=== PATIENT | female | born 1950 | race Caucasian/White ===

== ENCOUNTER → 2016-12-05 | Outpatient (CLI) | payer OTHER | LOC: BMCIMAGING 08:39 | PROVIDERS: ATTEND Nurse Practitioner Family | DX: R05 Cough (principal) ==

== ENCOUNTER → 2017-05-10 | Outpatient (CLI) | payer OTHER | LOC: FIMAGING 08:53 | PROVIDERS: ATTEND Obstetrics & Gynecology | DX: D25.9 Leiomyoma of uterus, unspecified (principal) ==

== ENCOUNTER → 2018-04-10 | Outpatient (CLI) | payer OTHER | LOC: FIMAGING 12:18 | PROVIDERS: ATTEND Internal Medicine | DX: M48.061 Spinal stenosis, lumbar region without neurogenic claudication (principal); M48.07 Spinal stenosis, lumbosacral region; M51.36 Other intervertebral disc degeneration, lumbar region; M51.27 Other intervertebral disc displacement, lumbosacral region ==

== ENCOUNTER → 2018-04-12 | Outpatient (CLI) | payer OTHER | LOC: FIMAGING 11:55 | PROVIDERS: ATTEND Internal Medicine | DX: M16.0 Bilateral primary osteoarthritis of hip (principal); M46.96 Unspecified inflammatory spondylopathy, lumbar region; M46.97 Unspecified inflammatory spondylopathy, lumbosacral region ==

== ENCOUNTER → 2018-06-27 | Outpatient (CLI) | payer OTHER | LOC: BMCIMAGING 11:49 | PROVIDERS: ATTEND Allergy & Immunology Allergy | DX: J44.9 Chronic obstructive pulmonary disease, unspecified (principal) ==

== ENCOUNTER 2018-08-19 13:04 | Inpatient (IN) | payer OTHER ==
[2018-08-19] MEDS ORDERED: fentaNYL 100 MCG/2 ML INJ ONE (13:09)
[2018-08-19] MEDS ORDERED: KETAMINE 200 MG/20 ML VIAL ONE (13:16)
[2018-08-19] MEDS ORDERED: KETAMINE 200 MG/20 ML VIAL IVP ONE ×2 (13:16→13:30)
[2018-08-19] MEDS ORDERED: TDAP ADULT 0.5 ML INJ (BOOSTRIX) IM ONE (13:17)
--- NOTE | 2018-08-19 13:27 | EDPHY ---
H & P Time Seen by Provider: 08/19/18 13:10 HPI/ROS: CHIEF COMPLAINT: Right hip pain after fall HISTORY OF PRESENT ILLNESS: Patient was washing her dog in the bathtub when she slipped and landed on her right side. She did have some alcohol today. She presents by EMS on her left side complaining of severe right hip pain. Does not radiate but worse with any movement. Started just after the fall. Not associated with head injury or loss of consciousness. She does have an abrasion on her right knee and her left elbow. REVIEW OF SYSTEMS: Eye: no change in vision ENT: no sore throat Cardiac: no chest pain or syncope Pulmonary: no cough or SOB Abdomen: no vomiting, diarrhea, abdominal pain Musculoskeletal: No back or neck pain Skin: Skin abrasions Neuro: No weakness or numbness in the legs, she does have some chronic left lower hip and leg pain which is not changed. Constitutional: no fever : no urinary symptoms A comprehensive 10 point review of systems is otherwise negative aside from elements mentioned in the history of present illness. PAST MEDICAL HISTORY: Includes post-polio syndrome, chronic pain, asthma Social history: Alcohol today General Appearance: Patient is alert but intermittently screaming in pain from which she says is spasm in her right hip. Eyes: No scleral icterus. ENT, Mouth: Normal mucous membranes. Respiratory: Normal respiratory effort, breath sounds equal, lungs are clear to auscultation. Cardiovascular: Regular rate and rhythm. Gastrointestinal: Abdomen is soft and non tender. Neurological: Alert, face symmetric, normal motor and sensory in extremities. Skin: Left elbow and right knee abrasion. Musculoskeletal: Pelvis stable, pain in the right hip on palpation and rotation. Right knee abrasion but no bony tenderness in the thigh and knee leg or foot. Normal motor and sensory and dorsalis pedis pulse in both feet. Otherwise normal extremities. Psychiatric: Not agitated. Emergency Department course/MDM: 100 mcg fentanyl IV by EMS and 100 mcg in the emergency department, 20 mg IV ketamine. Wound care, tetanus update, x-rays of the right hip and knee, admission to hospitalist service with orthopedic consultation. No cervical spine tenderness. 1356: Discussed with the son who is in the room. Still is writhing around the bed in pain saying she has leg cramps, given 100 mg of fentanyl and 1 mg Ativan. She is hyperventilating. Patient does not know when she had something to eat or drink last. Smoking Status: Former smoker Constitutional: Initial Vital Signs Temperature (C) 36.8 C 08/19/18 13:12 Respiratory Rate 20 08/19/18 13:12 Blood Pressure 107/84 H 08/19/18 13:12 O2 Delivery Mode Room Air Allergies/Adverse Reactions: No Known Allergies Allergy (Verified 08/19/18 13:12) Home Medications: Medication Instructions Recorded Cetirizine [ZyrTEC 10 mg (*)] 10 mg PO DAILY AT 8PM PRN 04/27/17 diphenhydrAMINE [Benadryl 25 MG 25 mg PO DAILY AT 2PM 04/27/17 (*)] Advair 230/21 Hfa 1 puffs IH BID 08/19/18 Albuterol [Proventil Neb] 3 ml IH BID 08/19/18 Cetirizine [ZyrTEC 10 mg (*)] 10 mg PO DAILY@12 08/19/18 Fexofenadine HCl [Dimla Allergy] 180 mg PO DAILY 08/19/18 Levothyroxine [Synthroid 50 mcg 50 mcg PO DAILY06 08/19/18 (*)] Medical Decision Making - Diagnostics EKG Interpretation: 12-lead EKG interpreted by me; official reading is in computer system. My interpretation is sinus rhythm with late anterior RS transition. Artifact in 1 2 and 3. Imaging Results: Imaging Impressions Hip X-Ray 08/19/18 13:16 Impression: 1. Right femoral neck fracture. 2. See above report for additional findings. Knee X-Ray 08/19/18 13:16 Impression: Negative for fracture. X-ray of the right hip personally reviewed shows surgical neck fracture. Imaging: Discussed imaging studies w/ scallop dredger Radiologist, I viewed and interpreted images myself Differential Diagnosis: Differential for hip pain considered including but not limited to dislocation, femur fracture, pelvis fracture, hip contusion. Consult/Admit Bed Type: Dk Perry 1404,Asif 1410 - Data Points Laboratory Results: Laboratory Results 08/19/18 13:50 08/19/18 13:50 08/19/18 08/19/18 08/19/18 13:50 13:50 13:50 WBC RBC Hgb Hct MCV MCH MCHC RDW Plt Count MPV Neut % (Auto) Lymph % (Auto) Wythe % (Auto) Eos % (Auto) Baso % (Auto) Nucleat RBC Rel Count Absolute Neuts (auto) Absolute Lymphs (auto) Absolute Monos (auto) Absolute Eos (auto) Absolute Basos (auto) Absolute Nucleated RBC Immature Gran % Immature Gran # PT 12.8 SEC SEC (12.0-15.0) INR 0.94 (0.83-1.16) APTT 24.5 SEC SEC (23.0-38.0) Sodium 139 mEq/L mEq/L (135-145) Potassium 4.6 mEq/L mEq/L (3.3-5.0) Chloride 106 mEq/L mEq/L (97-110) Carbon Dioxide 24 mEq/l mEq/l (22-31) Anion Gap 9 mEq/L mEq/L (6-14) BUN 19 mg/dL mg/dL (7-23) Creatinine 0.7 mg/dL mg/dL (0.6-1.0) Estimated GFR > 60 Glucose 98 mg/dL mg/dL (70-100) Calcium 10.3 mg/dL mg/dL (8.5-10.4) Total Bilirubin 0.6 mg/dL mg/dL (0.1-1.4) Conjugated Bilirubin 0.2 mg/dL mg/dL (0.0-0.5) Unconjugated Bilirubin 0.4 mg/dL mg/dL (0.0-1.1) AST 31 IU/L IU/L (14-46) ALT 27 IU/L IU/L (9-52) Alkaline Phosphatase 56 IU/L IU/L (38-126) Total Protein 6.9 g/dL g/dL (6.3-8.2) Albumin 4.4 g/dL g/dL (3.5-5.0) TSH 17.100 uIU/mL H uIU/mL (0.465-4.680) Free T4 1.22 ng/dL ng/dL (0.59-2.19) Free T3 3.29 pg/mL pg/mL (2.77-5.27) Ethyl Alcohol 129 mg/dL H mg/dL (0-10) 08/19/18 13:50 WBC 8.91 10^3/uL 10^3/uL (3.80-9.50) RBC 4.33 10^6/uL 10^6/uL (4.18-5.33) Hgb 13.8 g/dL g/dL (12.6-16.3) Hct 40.8 % % (38.0-47.0) MCV 94.2 fL fL (81.5-99.8) MCH 31.9 pg pg (27.9-34.1) MCHC 33.8 g/dL g/dL (32.4-36.7) RDW 14.2 % % (11.5-15.2) Plt Count 303 10^3/uL 10^3/uL (150-400) MPV 9.6 fL fL (8.7-11.7) Neut % (Auto) 60.3 % % (39.3-74.2) Lymph % (Auto) 30.5 % % (15.0-45.0) Wythe % (Auto) 8.6 % % (4.5-13.0) Eos % (Auto) 0.0 % L % (0.6-7.6) Baso % (Auto) 0.2 % L % (0.3-1.7) Nucleat RBC Rel Count 0.0 % % (0.0-0.2) Absolute Neuts (auto) 5.36 10^3/uL 10^3/uL (1.70-6.50) Absolute Lymphs (auto) 2.72 10^3/uL 10^3/uL (1.00-3.00) Absolute Monos (auto) 0.77 10^3/uL 10^3/uL (0.30-0.80) Absolute Eos (auto) 0.00 10^3/uL L 10^3/uL (0.03-0.40) Absolute Basos (auto) 0.02 10^3/uL 10^3/uL (0.02-0.10) Absolute Nucleated RBC 0.00 10^3/uL 10^3/uL (0-0.01) Immature Gran % 0.4 % % (0.0-1.1) Immature Gran # 0.04 10^3/uL 10^3/uL (0.00-0.10) PT INR APTT Sodium Potassium Chloride Carbon Dioxide Anion Gap BUN Creatinine Estimated GFR Glucose Calcium Total Bilirubin Conjugated Bilirubin Unconjugated Bilirubin AST ALT Alkaline Phosphatase Total Protein Albumin TSH Free T4 Free T3 Ethyl Alcohol Medications Given: Cyclobenzaprine HCl (Flexeril) 10 mg PO TID TORRES Stop: 02/15/19 15:59 Last Admin: 08/19/18 15:46 Dose: 10 mg Discontinued Medications Diphtheria/Tetanus/Acell Pertussis (Boostrix) 0.5 ml IM .ONCE ONE Stop: 08/19/18 13:18 Last Admin: 08/19/18 15:00 Dose: 0.5 ml Fentanyl (Sublimaze) 100 mcg IVP EDNOW ONE Stop: 08/19/18 13:31 Last Admin: 08/19/18 13:10 Dose: 100 mcg Fentanyl (Sublimaze) 100 mcg IVP EDNOW ONE Stop: 08/19/18 13:52 Last Admin: 08/19/18 13:57 Dose: 100 mcg Fentanyl (Sublimaze) 50 mcg IVP EDNOW ONE Stop: 08/19/18 14:57 Last Admin: 08/19/18 15:01 Dose: 50 mcg Hydromorphone HCl (Dilaudid) 0.4 mg IVP ONCE ONE Stop: 08/19/18 15:32 Last Admin: 08/19/18 15:44 Dose: 0.4 mg Ketamine HCl (Ketamine) 20 mg IVP EDNOW ONE Stop: 08/19/18 13:17 Last Admin: 08/19/18 13:25 Dose: 20 mg Ketamine HCl (Ketamine) 20 mg IVP EDNOW ONE Stop: 08/19/18 13:31 Last Admin: 08/19/18 13:39 Dose: 20 mg Lorazepam (Ativan Injection) 1 mg IVP EDNOW ONE Stop: 08/19/18 13:57 Last Admin: 08/19/18 14:07 Dose: Not Given Lorazepam (Ativan Injection) 1 mg IVP ONCE ONE Stop: 08/19/18 15:32 Last Admin: 08/19/18 15:43 Dose: 1 mg Departure - Departure Disposition: [facility] Acute Clinical Impression: Abrasion, right knee, initial encounter Fracture of femoral neck, right, closed Qualifiers: Encounter type: initial encounter Qualified Code(s): S72.001A - Fracture of unspecified part of neck of right femur, initial encounter for closed fracture Alcohol intoxication Qualifiers: Complication of substance-induced condition: uncomplicated Qualified Code(s): F10.920 - Alcohol use, unspecified with intoxication, uncomplicated Condition: Good
[2018-08-19] MEDS ORDERED: fentaNYL 100 MCG/2 ML INJ IVP ONE ×3 (13:30→14:56)
[2018-08-19] MEDS ORDERED: LORazepam 2 MG/ML INJ ONE (13:54)
[2018-08-19] MEDS: LORazepam 2 MG/ML INJ IVP ONE ×2 (13:57→14:07)
[2018-08-19] MEDS ORDERED: ACETAMINOPHEN 325 MG TAB PO PRN (14:13)
[2018-08-19] MEDS ORDERED: ONDANSETRON 4 MG/2 ML VIAL IVP PRN (14:13)
--- NOTE | 2018-08-19 14:13 | CPEKG ---
Test Reason : OPEN Blood Pressure : / mmHG Vent. Rate : 099 BPM Atrial Rate : 097 BPM P-R Int : 160 ms QRS Dur : 079 ms QT Int : 344 ms P-R-T Axes : 084 044 081 degrees QTc Int : 442 ms Sinus rhythm Left atrial enlargement Anteroseptal infarct, age indeterminate Lateral leads are also involved Confirmed by Joselo Gonzalez ([id number]) on 08/19/2018 2:13:03 PM Referred By: Confirmed By:Joselo Gonzalez
[2018-08-19 14:19] LABS: PLATELET COUNT 303 10^3/uL (150-400)
[2018-08-19 14:22] LABS: INR 0.94 (0.83-1.16); PROTIME(PATIENT) 12.8 SEC (12.0-15.0)
--- NOTE | 2018-08-19 14:40 | PDGENHP ---
History and Physical History and Physical: CC: For him by ambulance with hip pain after falling in her bathtub HISTORY: This patient was apparently giving her dog a bath in a bathtub when she slipped and fell on a slippery wet tile floor. She landed on her right side with immediate pain to the right hip unable to get up off the floor. She was home alone as her son and [id number] were out of the house with her child. It sounds like perhaps an hour or more she laid on the floor until the family came home and called an ambulance. She did not hit her head, does not have headache or neck pain or spine pain. She complains mainly of pain at the right hip with unable to move that hip. There is also some pain at the right knee and left elbow. X-rays have been done in the ER showing right femoral neck fracture and absence of any other fractures at the pelvis hips or right knee. She was not having any lightheadedness dizziness vertigo stroke-like symptoms headache nausea fever shortness of breath or cardiac symptoms before during or after her fall. She does not have a history of falls syncope or cardiac disease. Here in the ER she was complaining of severe muscular spasm in the right leg. Apparently she was writhing around a lot and unable to cooperate in providing a significant history to the ER staff. She was given a total of 300 mcg fentanyl as well as a couple doses of ketamine. Between her pain and her medications for pain, she was fairly inconsistent in inattentive. The initial examination by the ER physician found her to be confused and incoherent. I am seeing her at a time when she no spasm going on and she is notably more comfortable but still having pain in her hip. She is not writhing in the bed at all and she is wide awake, attentive, coherent, and participating in the examination normally. ROS: A comprehensive 10 system review revealed no other significant acute findings. She tells me that she gets a lot of muscle spasms from post-polio syndrome but there mostly around her neck and shoulder on the right side. They do occasionally occur in other places. At home she takes calcium and magnesium supplements to try and prevent these PAST MEDICAL HISTORY: I atrial genetic hyperthyroidism COPD/asthma History of tobacco abuse History of alcohol abuse and marijuana abuse Postmenopausal Cone biopsy Post-polio syndrome Chronic pain syndrome Seasonal allergies FAMILY MEDICAL HISTORY: No significant illness in family member she is aware of, nothing pertinent to her acute illness SOCIAL HISTORY: Lives alone MEDICATIONS: The patients list has been reconciled by our clinical pharmacist in the EMR. I have reviewed the list and ordered appropriate medicines. PHYSICAL EXAMINATION: Vital Signs: Normal vitals without fever, no hypoxemia Winding Lathe Operator: Examination: General: Lying on [facility] on her left side. She is relaxed alert and talkative Neurologic: Wide awake, oriented to person, date date month year, location, and really has a normal mentation for me overall; normal speech/language, normal homeowner association manager, good neuro muscular function at her right foot and toes Skin: warm, dry, good color, no rash HEENT: normal Neck: no mass or jvd Resps: relaxed Lungs: clear breath sounds Heart: regular, no murmur Abdomen: soft, nondistended, nontender, +BS, no mass Upper Extremities: Small superficial abrasion over the lateral epicondyle and olecranon on left elbow but moves that joint well with no swelling Lower Extremities: Normal neuro muscular and vascular function at the right foot and toes, otherwise legs and feet have no edema, warm with good color No Bleeding or bruising IV site: looks normal LABORATORY DATA: CBC remarkable for absence of macrocytosis otherwise normal Normal metabolic panel and liver panel I ordered TSH and free T3 in 4 levels which RADIOLOGY STUDIES: I have reviewed images from x-rays of her pelvis right hip and right knee. There is a femoral neck fracture on the right with mild displacement of angulation, no other fractures noted I ordered a noncontrast CT of the head and on my review of the images there is no evidence of any acute injury, bleed, stroke and no other significant abnormalities, with radiology reading pending 12 LEAD EKG: I reviewed tracing from the ER which shows a sinus tachycardia without any ischemic or other acute changes ASSESSMENT: * mechanical fall at home with injury * femoral neck fracture on the right * severe muscle spasms triggered by injury and her post-polio syndrome * confusion acutely in the ER was likely cause primarily by medications including large doses of fentanyl and ketamine, also given Ativan; Mentation normalized by the time I saw her subsequently in the ER; CT head negative * not on anticoagulants * post-polio syndrome * acute mild alcohol intoxication ADDENDUM: After my initial exam in the ER the patient started having severe muscle spasms in the left calf, which have now persisted for more than 30 min. PLANS: * Inpatient admission * I reviewed with Dr. Perry of Orthopedics, plan will be for surgical repair of her right hip tomorrow morning scheduled at 10:30 a.m. * Will make her NPO after midnight * I have ordered x-rays of the left tibia fibula and I am waiting for those to be done * Pain management with analgesics and muscle relaxers for now * DVT prophylaxis will start with a dose of subcu heparin now 5000 units, and then DVT medicine should be restarted after surgery tomorrow * Recheck hemoglobin in the morning I have reviewed the patient's case in detail with Dr. Joselo Gonzalez and Dr. Dk Perry I have reviewed the patient's past medical records as part of this assessment, including previous hospital admission records from this institution
--- NOTE | 2018-08-19 15:06 | ASMTLACE ---
BRYCE Acuity / Level of Answers: Yes Care: Did the patient have an inpatient admission? Comorbidities - select Answers: Chronic pulmonary disease all that apply History of falls Opioid dependence / Chronic pain Other Notes: post-polio syndrome, asthma # of Emergency department Answers: 1-2 visits in the last 6 months Social determinants Answers: History of substance abuse (ETOH, street drugs, prescription drugs, etc.) Score: 17 Date Signed: 08/19/2018 03:05 PM Electronically Signed By:Alysa Tapia RN
[2018-08-19] MEDS ORDERED: HYDROmorphONE/DILAUDID 1 MG/ML INJ IVP ONE (15:31)
[2018-08-19] MEDS ORDERED: LORazepam 2 MG/ML INJ IVP ONE (15:31)
[2018-08-19] MEDS ORDERED: HEPARIN 20,000 UNIT/ML VIAL SC ONE (15:37)
[2018-08-19] MEDS ORDERED: HEPARIN 5,000 UNIT/0.5 ML INJ SC ONE ×2 (15:45→18:30)
[2018-08-19] MEDS: CYCLOBENZAPRINE 10 MG TAB PO SCH ×2 (15:46→21:09)
--- NOTE | 2018-08-19 15:48 | ASMTCMCOM ---
CM Note CM Note Notes: Pt presented to the ED via EMS for right hip pain after having a fall at home. Pt states she was washing her dog in the bathtub when she slipped and fell onto her right side. Pt did admit to ETOH use today and has a history of ETOH abuse. Pt admitted for right femoral neck fracture. Ortho consulted, pt to have surgical repair tomorrow morning. Pt lives alone with her dog. Pt's son Zach Mccall and his and child were in the ED earlier but had to leave. This CM went to speak to patient re: plan of care/admission and to complete CAGE but patient is intoxicated, in a lot of pain and was writhing around in bed, screaming. ED RN had warned that pt had been punching out and grabbing at people. Exact DC needs TBD. CM to follow. Date Signed: 08/19/2018 03:48 PM Electronically Signed By:Alysa Tapia RN
[2018-08-19] MEDS ORDERED: HYDROmorphone HCL 0.5 MG/0.5 ML SYR IVP PRN (17:53)
[2018-08-19] MEDS: oxyCODONE IR 5 MG TAB PO PRN ×3 (18:14→23:30)
[2018-08-19] MEDS: THIAMINE HCL 500 MG in NS 100 ML IV SCH (18:15)
[2018-08-19] MEDS: HYDROmorphONE/DILAUDID 1 MG/ML INJ IVP PRN ×2 (18:34→20:27)
[2018-08-19] MEDS: MELATONIN 3 MG TAB PO SCH (21:09)
[2018-08-19] MEDS: ALBUTEROL 3 ML DEYVIAL IH SCH (21:16)
[2018-08-19] MEDS: ADVAIR IH SCH (21:27)
[2018-08-20] MEDS: oxyCODONE IR 5 MG TAB PO PRN ×2 (05:46→18:05)
[2018-08-20] MEDS: LEVOTHYROXINE 50 MCG TAB PO SCH (05:46)
[2018-08-20] MEDS: NS 1,000 ML IV SCH ×2 (05:48→22:12)
[2018-08-20] MEDS ORDERED: ROPIVACAINE 0.2% 80 MG, EPINEPHrine 0.2 MG, KETOROLAC TROMETHAMINE 30 MG in SYRINGE 0 ML IU ONE (06:40)
[2018-08-20] MEDS ORDERED: TRANEXAMIC ACID 1,000 MG in NS 100 ML IV ONE (06:40)
[2018-08-20] MEDS ORDERED: ceFAZolin 2 GM/DEXTROSE 100 ML IV ONE (06:40)
[2018-08-20] MEDS ORDERED: POVIDONE-IODINE 20 ML in SODIUM CL IRRIG SOLUTION 500 ML IRR ONE (06:40)
[2018-08-20] MEDS ORDERED: DEXAMETHASONE 4 MG/ML VIAL IVP ONE (06:40)
[2018-08-20] MEDS ORDERED: FAMOTIDINE 20 MG TAB PO ONE (06:40)
[2018-08-20] MEDS: HYDROmorphONE/DILAUDID 1 MG/ML INJ IVP PRN (08:04)
[2018-08-20] MEDS: CYCLOBENZAPRINE 10 MG TAB PO SCH ×3 (08:06→22:14)
[2018-08-20] MEDS: THIAMINE HCL 500 MG in NS 100 ML IV SCH (08:06)
[2018-08-20] MEDS: ADVAIR IH SCH ×2 (08:07→20:48)
[2018-08-20] MEDS: ALBUTEROL 3 ML DEYVIAL IH SCH ×2 (08:07→20:49)
--- NOTE | 2018-08-20 08:11 | HOSPPROG ---
Hospitalist Progress Note Assessment/Plan: This patient was giving her dog a bath in a bathtub when she slipped and fell on a slippery wet tile floor. She landed on her right side with immediate pain to the right hip unable to get up off the floor. First encounter, chart reviewed. * mechanical fall at home with injury -PT and OT to work with her after surgery * Right femoral neck fracture on the right -severe spasms (hx of post-polio syndrome) -meds ordered * confusion acutely in the ER -she received fentanyl and ketamine, Ativan -BAL level was 129 *hx of iatrogenic hyperthyroidism -has a TSH of 17 -will need f/u with her PCP * acute alcohol intoxication -continue monitoring for any s/sx of withdrawal *underweight w a BMI of 18 -consider dietary consult after surgery *plan: surgery today, will need dvt prophylaxis Subjective: Carolina said her hip is hurting her, having some right knee pain. Objective: Vital Signs Temp Pulse Resp BP Pulse Ox 36.8 C 70 18 141/81 H 96 08/20/18 07:47 08/20/18 07:47 08/20/18 07:47 08/20/18 07:47 08/20/18 07:47 Laboratory Results 08/20/18 04:40 08/19/18 08/20/18 08/21/18 05:59 05:59 05:59 Intake Total 350 1200 Output Total 570 Balance -220 1200 PT 12.8 SEC (12.0-15.0) 08/19/18 13:50 INR 0.94 (0.83-1.16) 08/19/18 13:50 - Physical Exam Constitutional: chronically ill appearing, uncomfortable Eyes: PERRL Ears, Nose, Mouth, Throat: hearing normal Cardiovascular: regular rate and rhythym Respiratory: no respiratory distress Skin: warm, other (scrape to right knee) Musculoskeletal: other (right leg shortened) Neurologic: other (drowsy,answers questions appropriately) ICD10 Worksheet Patient Problems: Problems Problem Status Onset Abrasion, right knee, initial encounter Acute Alcohol intoxication Acute Fracture of femoral neck, right, closed Acute Dehydration Acute Vomiting Acute
--- NOTE | 2018-08-20 08:17 | GCON ---
ORTHOPEDIC CONSULTATION REASON FOR CONSULTATION: Right hip pain. HISTORY OF PRESENT ILLNESS: A 68-year-old female who is known to me, last seen in clinic approximate ly 3 months ago. She has a significant history of right hip pain over multiple areas preceding her r ecent injury. She was offered a course of physical therapy. She states that on Monday she slipped a nd fell, landing on her left hip. She was unable to weightbear after this. She has had muscle spasm in multiple locations including the right hip, right leg and right shoulder. The patient was intoxi cated during this time and has a known history of alcoholism. She denies loss of consciousness or he ad trauma. REVIEW OF SYSTEMS: A 10-point review of systems reviewed and negative except for HPI. PAST MEDICAL HISTORY: Includes hyperthyroidism, COPD/asthma, tobacco abuse, alcohol abuse, marijuana abuse, post-polio syndrome, chronic pain syndrome. SOCIAL HISTORY: Lives alone. MEDICATIONS: Reviewed. FAMILY HISTORY: Noncontributory. PHYSICAL EXAMINATION: GENERAL: The patient is awake, alert, and oriented x3. No acute distress. L UNGS: She has easy, nonlabored breathing. EXTREMITIES: Her right hip is slightly externally rotate d and minimally shortened. There is a superficial abrasion over her tibial tubercle. She is neurova scularly intact distally. Sensation intact to light touch from L4-S1. Motor intact to EHL, FHL, tib ialis anterior, gastrocsoleus. LABORATORY DATA: Within normal limits. IMAGING: X-rays of the pelvis and right hip reveal a valgus impacted femoral neck fracture with end- stage osteoarthritis of the right hip. X-rays of the tib-fib are normal. ASSESSMENT AND PLAN: A 68-year-old female with a valgus impacted femoral neck fracture with osteoart hritis. Patient was considering total hip arthroplasty in the past, and I recommend this as the liseth tment option for current fracture. Risks and benefits, pros and cons of the procedure were discussed with the patient. These include, but are not limited to, bleeding, infection, damage to surrounding anatomic structures, fracture, dislocation, leg length discrepancy, heterotopic ossification, metal allergy, and implant wear and failure. The patient understood and agreed and signed her informed con sent. /[id number]/MODL
[2018-08-20] MEDS ORDERED: Fexofenadine Hcl [Allegra Allergy] 180 MG PO SCH (09:00)
[2018-08-20] MEDS ORDERED: BUPIVACAINE/EPI 0.5% 30 ML SDV ONE (09:37)
--- NOTE | 2018-08-20 10:02 | PDMN ---
Medical Necessity Medical necessity: [facility] [place] S560 Hip Arthroplasty: 68 w/ presents w/ R hip fracture after fall, ortho consult, pt agreed and scheduled for YAIMA next day, MC IP only
[2018-08-20] MEDS ORDERED: DEXAMETHASONE 4 MG/ML VIAL ONE (10:05)
[2018-08-20] MEDS ORDERED: CEFAZOLIN 2 GM/DEXTROSE/100 ML BAG IV ONE (10:06)
[2018-08-20] MEDS ORDERED: HYDROmorphONE/DILAUDID 2 MG/ML INJ ONE (10:09)
[2018-08-20] MEDS ORDERED: HYDROmorphONE/DILAUDID 2 MG/ML INJ IVP ONE (10:15)
[2018-08-20] MEDS ORDERED: LR 1,000 ML IV ONE (10:23)
--- NOTE | 2018-08-20 10:47 | PDANEPAE ---
ANE History of Present Illness traumatic R hip fx here for ORIF ANE Past Medical History - Cardiovascular History Hx Hypertension: No Hx Arrhythmias: No Hx Chest Pain: No Hx Coronary Artery / Peripheral Vascular Disease: No - Pulmonary History Hx COPD: No Hx Asthma/Reactive Airway Disease: Yes Hx Recent Upper Respiratory Infection: No Hx Oxygen in Use at Home: No Hx Sleep Apnea: No Sleep Apnea Screening Result - Last Documented: Negative - Endocrine History Hx Diabetes: No - Other Health History Other Health History: OsteoArthritis - Chronic Pain History Chronic Pain: Yes ANE Review of Systems Review of Systems: - Exercise capacity Exercise capacity: >=4 METS ANE Patient History - Allergies Allergies/Adverse Reactions: No Known Allergies Allergy (Verified 08/19/18 13:12) - Home Medications Home Medications: Cetirizine [ZyrTEC 10 mg (*)] 10 mg PO DAILY AT 8PM PRN 04/27/17 [Last Taken ] diphenhydrAMINE [Benadryl 25 MG (*)] 25 mg PO DAILY AT 2PM 04/27/17 [Last Taken 04/26/17] Advair 230/21 Hfa 1 puffs IH BID 08/19/18 [Last Taken Unknown] Albuterol [Proventil Neb] 3 ml IH BID 08/19/18 [Last Taken Unknown] Cetirizine [ZyrTEC 10 mg (*)] 10 mg PO DAILY@12 08/19/18 [Last Taken Unknown] Levothyroxine [Synthroid 50 mcg (*)] 50 mcg PO DAILY06 08/19/18 [Last Taken Unknown] Fexofenadine HCl [Dilma Allergy] 180 mg PO DAILY 08/20/18 [Last Taken Unknown] - NPO status NPO Status: no food or drink >8 hours NPO Since - Liquids (Date): 08/20/18 NPO Since - Liquids (Time): 00:00 NPO Since - Solids (Date): 08/20/18 NPO Since - Solids (Time): 00:00 - Anes Hx Anes Hx: no prior problems - Smoking Hx Smoking Status: Former smoker - Alcohol Use Alcohol Use: Occasionally - Family Anes Hx Family Anes Hx: none ANE Labs/Vital Signs - Labs Result Diagrams: 08/20/18 04:40 08/19/18 13:50 - Vital Signs Vital Signs: reviewed preoperatively; see RN documention for details Blood Pressure: 141/81 Heart Rate: 70 Respiratory Rate: 18 O2 Sat (%): 96 Height: 160.02 cm Weight: 47.174 kg ANE Physical Exam - Airway Neck exam: FROM Mallampati Score: Class 2 Mouth exam: normal dental/mouth exam - Pulmonary Pulmonary: no respiratory distress, clear to auscultation - Cardiovascular Cardiovascular: regular rate and rhythym, no murmur, rub, or gallop - ASA Status ASA Status: III ANE Anesthesia Plan Anesthesia Plan: general endotracheal anesthesia
[2018-08-20] MEDS ORDERED: fentaNYL 100 MCG/2 ML INJ ONE ×2 (10:56→11:42)
[2018-08-20] MEDS ORDERED: PROPOFOL 200 MG/20 ML VIAL ONE (10:56)
[2018-08-20] MEDS ORDERED: LIDOCAINE 2% 100 MG/5 ML SYR ONE (10:57)
--- NOTE | 2018-08-20 12:17 | ASMTCMCOM ---
CM Note CM Note Notes: Patient to have R hip ORIF today. Discharge needs TBD. CM to complete CAGE eval post-op. Date Signed: 08/20/2018 12:16 PM Electronically Signed By:Sierra Henson RN
--- NOTE | 2018-08-20 13:09 | POSTOPPROG ---
Post Op Note Date of Operation: 08/20/18 Surgeon: Dk Perry Sonogram Technician: RAMO Connors Anesthesiologist: MD Camille Anesthesia: GET(General Endotracheal) Pre-op Diagnosis: R femoral neck fracture with severe OA Post-op Diagnosis: same Indication: Procedure: R anterior YAIMA Inf/Abcess present in the surg proc area at time of surgery?: No EBL: 100-500 (300) Drains: Hemovac
[2018-08-20] MEDS ORDERED: BISACODYL 10 MG SUPP PR PRN (13:10)
[2018-08-20] MEDS ORDERED: TEMAZEPAM 15 MG CAP PO PRN (13:10)
[2018-08-20] MEDS ORDERED: POLYETHYLENE GLYCOL 3350 17 GM PKT PO PRN (13:10)
[2018-08-20] MEDS ORDERED: PROMETHAZINE HCL 25 MG/ML INJ IVP PRN (13:10)
[2018-08-20] MEDS ORDERED: LACTULOSE 20 GM/30 ML UDCUP PO PRN (13:10)
[2018-08-20] MEDS ORDERED: MAGNESIUM HYDROXIDE 30 ML UDCUP PO PRN (13:10)
[2018-08-20] MEDS ORDERED: PROMETHAZINE HCL 25 MG SUPPR PR PRN (13:10)
[2018-08-20] MEDS ORDERED: METOCLOPRAMIDE 10 MG/2 ML VIAL IVP PRN (13:10)
[2018-08-20] MEDS ORDERED: ONDANSETRON DISINTEGRATING 4 MG TAB PO PRN (13:10)
[2018-08-20] MEDS ORDERED: DIPHENOXYLATE/ATROPINE LOMOTIL 1 TAB PO PRN (13:10)
[2018-08-20] MEDS ORDERED: ceFAZolin 2 GM/DEXTROSE 100 ML IV SCH (14:00)
[2018-08-20] MEDS: CETIRIZINE 10 MG TAB PO SCH (14:57)
[2018-08-20] MEDS: diphenhydrAMINE 25 MG CAP PO SCH (15:04)
[2018-08-20] MEDS: ceFAZolin 2 GM/DEXTROSE 100 ML IV SCH (17:20)
[2018-08-20] MEDS: ASPIRIN 81 MG CHEWABLE TAB PO SCH (22:13)
[2018-08-20] MEDS: MELATONIN 3 MG TAB PO SCH (22:14)
[2018-08-20] MEDS: FAMOTIDINE 20 MG TAB PO SCH (22:14)
[2018-08-20] MEDS: SENNOSIDES/DOCUSATE SODIUM TAB PO SCH (22:14)
[2018-08-21] MEDS: ceFAZolin 2 GM/DEXTROSE 100 ML IV SCH (02:11)
[2018-08-21] MEDS: oxyCODONE IR 5 MG TAB PO PRN ×5 (02:11→21:41)
[2018-08-21] MEDS: LEVOTHYROXINE 50 MCG TAB PO SCH (05:49)
[2018-08-21] MEDS: CETIRIZINE 10 MG TAB PO SCH (06:10)
[2018-08-21] MEDS ORDERED: CETIRIZINE 10 MG TAB PO SCH (09:00)
[2018-08-21] MEDS: ADVAIR IH SCH ×2 (09:22→21:08)
[2018-08-21] MEDS: ALBUTEROL 3 ML DEYVIAL IH SCH ×2 (09:23→21:08)
[2018-08-21] MEDS: ASPIRIN 81 MG CHEWABLE TAB PO SCH ×2 (09:38→21:39)
[2018-08-21] MEDS: CYCLOBENZAPRINE 10 MG TAB PO SCH (09:38)
[2018-08-21] MEDS: SENNOSIDES/DOCUSATE SODIUM TAB PO SCH ×2 (09:39→21:41)
[2018-08-21] MEDS: FAMOTIDINE 20 MG TAB PO SCH ×2 (09:39→21:40)
[2018-08-21] MEDS: Fexofenadine Hcl [Allegra Allergy] 180 MG PO SCH (09:47)
[2018-08-21] MEDS: THIAMINE HCL 500 MG in NS 100 ML IV SCH (09:48)
--- NOTE | 2018-08-21 09:58 | HOSPPROG ---
Hospitalist Progress Note Assessment/Plan: This patient was giving her dog a bath in a bathtub when she slipped and fell on a slippery wet tile floor. She landed on her right side with immediate pain to the right hip unable to get up off the floor. * mechanical fall at home with injury -PT and OT to work with her after surgery * Right femoral neck fracture on the right -s/p YAIMA -having some spasms in her left leg, will do a trial of prn Robaxin *right shoulder pain -x rays in a.m. *anemia -will follow * confusion acutely in the ER -resolved *hx of iatrogenic hyperthyroidism -has a TSH of 17 -will need f/u with her PCP * acute alcohol intoxication -continue monitoring for any s/sx of withdrawal -oral thiamine *underweight w a BMI of 18 -consider dietary consult after surgery *dvt prophylaxis: Reviewed w Dr Perry, he is giving her aspirin bid *plan: repeat labs in a.m., suspect she will need a SNF, cont supportive care Subjective: Jayne said her pain is well managed when I evaluated her, was having significant pain earlier today. Objective: Vital Signs Temp Pulse Resp BP Pulse Ox 37.2 C 108 H 16 119/55 L 93 08/21/18 07:32 08/21/18 09:23 08/21/18 09:23 08/21/18 07:32 08/21/18 09:23 Laboratory Results 08/21/18 04:38 08/21/18 04:38 08/20/18 08/21/18 08/22/18 05:59 05:59 05:59 Intake Total 350 3000 505 Output Total 570 1930 Balance -220 1070 505 PT 12.8 SEC (12.0-15.0) 08/19/18 13:50 INR 0.94 (0.83-1.16) 08/19/18 13:50 - Physical Exam Constitutional: chronically ill appearing, other (thin) Eyes: PERRL Ears, Nose, Mouth, Throat: hearing normal Cardiovascular: regular rate and rhythym Respiratory: no respiratory distress Gastrointestinal: normoactive bowel sounds Skin: warm, other (mulitple skin bruises to both forearm areas, right hip with some swelling, no drainage) Musculoskeletal: generalized weakness Neurologic: AAOx3 Psychiatric: interacting appropriately ICD10 Worksheet Patient Problems: Problems Problem Status Onset Abrasion, right knee, initial encounter Acute Alcohol intoxication Acute Fracture of femoral neck, right, closed Acute Dehydration Acute Vomiting Acute
[2018-08-21] MEDS ORDERED: ENOXAPARIN 40 MG/0.4 ML SYR SC SCH (10:00)
--- NOTE | 2018-08-21 10:45 | GOP ---
DATE OF OPERATION: 08/20/2018 SURGEON: Dk Perry MD SUPERVISOR INSPECTION DEPARTMENT: Perry Connors, CSFA, LSA. Critical Care Nurse Practitioner was required for the procedure due to the comple xity of the case, patient's positioning, prepping, draping, retraction, and closure. ANESTHESIA: General. 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 POSTOPERATIVE DIAGNOSIS: Right femoral neck fracture with end-stage osteoarthritis. PROCEDURE PERFORMED: Right anterior approach total hip arthroplasty with fluoroscopic supervision gr eater than 1 hour. FINDINGS: SPECIMENS: Femoral head. ESTIMATED BLOOD LOSS: 300 cc. INDICATIONS: Patient had a mechanical slip and fall onto her right hip. She is a known patient to [facility] with severe osteoarthritis, due to the fracture and arthritis, I recommended hip replacement using anterior approach. After extensive discussion of possible approaches, as well as the risks, benefits , pros, cons, expected recovery, and prognosis, the patient verbalized understanding of the risks and benefits of the procedure and signed informed consent prior to the procedure. DESCRIPTION OF PROCEDURE: The patient was seen in the preoperative holding area, and the operative c onsent and extremity were signed. She was then taken the operating room. After smooth induction of general anesthesia, she was placed in the supine positions on the fracture table. The hip was preppe d and draped in usual sterile fashion. Operative site was confirmed by signature. Time-out performe d. Allergies reviewed. Antibiotics and TXA were administered. Desired incision for the anterior ap proach was infiltrated with 0.25% Marcaine with epinephrine. Incision was made with a 10 blade, carried through subcutaneous fat to identify the TFL fascia. This was incised in line with the incision and the TFL was retracted laterally. The lateral femoral circ umflex vessels were coagulated with Aquamantys and the deep TFL fascia was incised. Vastus lateralis was clearly exposed. Pericapsular fat was excised and a T-shaped capsulotomy was performed. Capsul e was preserved for later closure. Immediate identification of the valgus impacted and comminuted femoral neck fracture was observed. O steotomy of the remaining femoral neck was performed with an oscillating saw. Excess femoral neck wa s removed and the femoral head was excised with a corkscrew. The acetabulum was exposed in standard fashion. Labrum, pulvinar were sharply excised. Reaming was performed using fluoroscopic guidance t o the desired size. The cup was impacted into place, again with fluoroscopic guidance. Good fixatio n was achieved. The cup was irrigated, dried, and the liner was impacted into place achieving good l ocking within the cup. The femur was then exposed in standard fashion. Femur was broached to the desired size. Trial neck and head were attached, and the hip was relocated. Position of all components was confirmed fluorosc opically. The foot was freed from the table and stability was confirmed at 45 degrees in maximal fle xion, 30 degrees in internal rotation. The foot was secured back to the table, externally rotated at 90 degrees, extended retirement to the floor, and stability was again confirmed. The hip was then disl ocated. The femoral trial components were removed and the stem was impacted into place. The trunnio n was cleaned, dried, and the head was impacted down onto the trunnion. The wound was copiously irri gated, including the cup with pulse lavage, and the hip was once again relocated. Component placemen t was confirmed with fluoroscopy. The wound was copiously irrigated with sterile solution. Dilute Betadine solution was then irrigated in the wound, allowed to soak for 3 minutes before being irrigated out. Joint cocktail was injected in the soft-tissue. Capsule was repaired with #1 Vicryl, and direct head of the rectus femoris was also repaired with #1 Vicryl. Drain was placed exiting distal and laterally from the TFL. The wound was then closed in layers with 0 Quill in the TFL fascia and subcutaneous fat, 3-0 Versalok in the d ermis. The wound was then dressed with sterile dressing. Patient was safely awakened, extubated, an d taken to recovery room in stable condition. All critical portions of procedure performed by myself, Dr. Perry. This operative note was created by myself, and I was immediately available for emergency cross-coverage at all times. DRAINS: Hemovac x1. COMPLICATIONS: None. IMPLANTS: Trident II Tritanium cluster hole acetabular shell size 48 with 0 degree polyethylene line r; Accolade II size 3 stem, 132 degree offset with a 36 mm, +0 head. /[id number]/MODL
[2018-08-21] MEDS ORDERED: METHOCARBAMOL 750 MG TAB PO PRN (12:08)
--- NOTE | 2018-08-21 13:17 | SOAPPROG ---
SOAP Progress Note Assessment/Plan: Assessment: Postoperative day 1 status post right anterior approach total hip arthroplasty for femoral neck fracture with severe arthritis Plan: Weightbear as tolerated, PT/OT DVT prophylaxis: [place] SCDs aspirin 81 mg twice daily IS 10 times per hour Disposition: Likely to subacute rehab tomorrow 08/21/18 13:14 Subjective: No acute events. Pain well controlled at rest. Some discomfort while trying to move around and with physical therapy. Shoulder pain is not currently bothering her. denies fevers chills nausea vomiting chest pain shortness of breath numbness or tingling Objective: Vital Signs Temp Pulse Resp BP Pulse Ox 36.8 C 116 H 14 110/74 90 L 08/21/18 11:53 08/21/18 11:53 08/21/18 11:53 08/21/18 11:53 08/21/18 11:53 Laboratory Results 08/21/18 04:38 08/21/18 04:38 08/20/18 08/21/18 08/22/18 05:59 05:59 05:59 Intake Total 350 3000 505 Output Total 570 1930 500 Balance -220 1070 5 PT 12.8 SEC (12.0-15.0) 08/19/18 13:50 INR 0.94 (0.83-1.16) 08/19/18 13:50 Awake alert and oriented x3 No acute distress Easy nonlabored breathing Right lower extremity: Dressing clean dry intact, no erythema drainage or signs of infection Drain has been removed Mild swelling and ecchymosis Thigh and calf compartments soft compressible Sensation intact to light touch L3-S1 Motor intact to EHL FHL tibialis anterior gastrocsoleus Palpable DP PT pulses ICD10 Worksheet Patient Problems: Problems Problem Status Onset Abrasion, right knee, initial encounter Acute Alcohol intoxication Acute Fracture of femoral neck, right, closed Acute Dehydration Acute Vomiting Acute
[2018-08-21] MEDS: diphenhydrAMINE 25 MG CAP PO SCH (13:48)
--- NOTE | 2018-08-21 15:02 | ASMTCMCOM ---
CM Note CM Note Notes: OT/PT rec SNF, pt amenable. Pt requests referrals to [facility] and [facility], referrals sent in Allscripts. Pt son Zach emailed SNF list. Date Signed: 08/21/2018 03:01 PM Electronically Signed By:MONICA Baez
[2018-08-21] MEDS: MELATONIN 3 MG TAB PO SCH (21:40)
[2018-08-22] MEDS: oxyCODONE IR 5 MG TAB PO PRN ×4 (02:46→15:29)
[2018-08-22] MEDS: LEVOTHYROXINE 50 MCG TAB PO SCH (06:19)
[2018-08-22] MEDS: FAMOTIDINE 20 MG TAB PO SCH (08:21)
[2018-08-22] MEDS: SENNOSIDES/DOCUSATE SODIUM TAB PO SCH (08:21)
[2018-08-22] MEDS: ASPIRIN 81 MG CHEWABLE TAB PO SCH (08:21)
[2018-08-22] MEDS: Fexofenadine Hcl [Allegra Allergy] 180 MG PO SCH (08:24)
[2018-08-22] MEDS ORDERED: THIAMINE HCL 100 MG TAB PO SCH (09:00)
--- NOTE | 2018-08-22 09:06 | SOAPPROG ---
SOAP Progress Note Assessment/Plan: Assessment: Postoperative day 2 status post right anterior approach total hip arthroplasty for femoral neck fracture with severe arthritis Plan: Weightbear as tolerated, PT/OT DVT prophylaxis: [place] SCDs aspirin 81 mg twice daily IS 10 times per hour Disposition: Likely to subacute rehab today 08/21/18 13:14 08/22/18 09:04 Subjective: No acute events overnight. Pain relatively well controlled while at rest. Denies fevers chills nausea vomiting chest pain shortness of breath numbness or tingling. Continues to have mild shoulder soreness especially with walker use. Objective: Vital Signs Temp Pulse Resp BP Pulse Ox 37.5 C 97 16 135/76 H 92 08/22/18 07:43 08/22/18 07:43 08/22/18 07:43 08/22/18 07:43 08/22/18 07:43 Laboratory Results 08/22/18 04:45 08/21/18 04:38 08/21/18 08/22/18 08/23/18 05:59 05:59 05:59 Intake Total 3000 905 Output Total 1930 1250 800 Balance 1070 -345 -800 PT 12.8 SEC (12.0-15.0) 08/19/18 13:50 INR 0.94 (0.83-1.16) 08/19/18 13:50 Awake alert and oriented x3 No acute distress Easy nonlabored breathing Right lower extremity: Dressing clean dry intact, no erythema drainage or signs of infection Drain has been removed Mild swelling and ecchymosis Thigh and calf compartments soft compressible Sensation intact to light touch L3-S1 Motor intact to EHL FHL tibialis anterior gastrocsoleus Palpable DP PT pulses ICD10 Worksheet Patient Problems: Problems Problem Status Onset Abrasion, right knee, initial encounter Acute Alcohol intoxication Acute Fracture of femoral neck, right, closed Acute Dehydration Acute Vomiting Acute
[2018-08-22] MEDS: ALBUTEROL 3 ML DEYVIAL IH SCH (10:05)
[2018-08-22] MEDS: ADVAIR IH SCH (10:05)
[2018-08-22] MEDS: CETIRIZINE 10 MG TAB PO SCH (10:58)
--- NOTE | 2018-08-22 12:35 | HOSPPROG ---
Hospitalist Progress Note Assessment/Plan: This patient was giving her dog a bath in a bathtub when she slipped and fell on a slippery wet tile floor. She landed on her right side with immediate pain to the right hip unable to get up off the floor. * mechanical fall at home with injury -PT and OT to work with her after surgery * Right femoral neck fracture on the right -s/p YAIMA, pod #2 -having some spasms in her left leg, will do a trial of prn Robaxin *right shoulder pain -not c/o pain today *anemia -stable * confusion acutely in the ER -resolved *hx of iatrogenic hyperthyroidism -has a TSH of 17 -will need f/u with her PCP * acute alcohol intoxication -no s/sx of withdrawal -oral thiamine *underweight w a BMI of 18 -consider dietary consult after surgery *dvt prophylaxis: aspirin bid *plan: dc today to Subjective: Jayne is feeling fine, feels her pain is well managed. Objective: Vital Signs Temp Pulse Resp BP Pulse Ox 36.9 C 100 18 109/71 94 08/22/18 11:44 08/22/18 11:44 08/22/18 11:44 08/22/18 11:44 08/22/18 11:44 Laboratory Results 08/22/18 04:45 08/21/18 04:38 08/21/18 08/22/18 08/23/18 05:59 05:59 05:59 Intake Total 3000 905 Output Total 1930 1250 1200 Balance 1070 -345 -1200 PT 12.8 SEC (12.0-15.0) 08/19/18 13:50 INR 0.94 (0.83-1.16) 08/19/18 13:50 - Physical Exam Constitutional: no apparent distress, other (thin) Eyes: PERRL Ears, Nose, Mouth, Throat: hearing normal Cardiovascular: regular rate and rhythym Respiratory: no respiratory distress Skin: warm, other (swelling and ecchymosis on right hip upper thigh area) Musculoskeletal: generalized weakness Neurologic: AAOx3 Psychiatric: interacting appropriately ICD10 Worksheet Patient Problems: Problems Problem Status Onset Abrasion, right knee, initial encounter Acute Alcohol intoxication Acute Fracture of femoral neck, right, closed Acute chronic disease mgmt/transitional care Acute Dehydration Acute Vomiting Acute
--- NOTE | 2018-08-22 13:12 | PDIAF ---
- Diagnosis Diagnosis: R femoral neck fx s/p YAIMA, gait instability Code Status: Full Code - Medication Management Discharge Medications: electronically signed and located in the Home Medication List. PICC Care - Routine: N/A - Orders Services needed: Physical Therapy, Occupational Therapy Diet Recommendation: no restrictions on diet Diet Texture: Regular Texture Diet Additional Instructions: WBAT PT/OT f/u with Dr Perry in 1-2 weeks see handout Your TSH is very elevated at 17, need to get this rechecked with your PCP in next few weeks - Labs/Radiology BMP Date: 08/24/18 (weekly) HCT/HGB Date: 08/24/18 (weekly) - Follow Up Care Current Providers and Referrals: Dk Perry MD [Medical Doctor] - follow up in 2 weeks Patient,NotPresent [Unknown] - As per Instructions
--- NOTE | 2018-08-22 13:56 | GDS ---
DISCHARGE DIAGNOSES: 1. Mechanical fall. 2. Right femoral neck fracture, status post total hip arthroplasty. 3. Right shoulder pain. 4. Anemia. 5. Acute confusion. 6. History of iatrogenic hyperthyroidism. 7. Acute alcohol intoxication. 8. Underweight, with a body mass index of 18. CONSULTATIONS: Dr. Perry. HISTORY: Briefly, the patient was giving her dog a bath in the bath tub when she slipped and fell on a slippery floor. She landed on her right side with immediate pain to her right hip and was unable to get off the floor. She came to [facility]. She had surgery on her right hip 2 days ago. She has done very well in the postop setting, and she will follow up with Dr. Perry in the outpatient setting. HOSPITAL COURSE: 1. Mechanical fall at home with injury. She is working on physical therapy and occupational therapy and doing well. 2. Right femoral neck fracture on the right. She is status post YAIMA. 3. Right shoulder pain. No complaints of this today. 4. Anemia, stable. 5. Confusion. This was acute in the ER. This resolved. 6. History of iatrogenic hyperthyroidism. She has a TSH of 17. She needs to get this rechecked and follow up with her PCP. 7. Acute alcohol intoxication. She has had no signs or symptoms of withdrawal. 8. Underweight. She has a BMI of 18. DISCHARGE CONDITION: Stable. Blood pressure is 109/71, O2 saturation on room air 94%. Respiratory rate is 18. Pulse is 100. Temperature 36.9 Celsius. DISCHARGE MEDICATIONS: Please see the EMR. DISCHARGE INSTRUCTIONS: 1. Weightbearing as tolerated. 2. Follow up with Dr. Perry in 2 weeks. 3. If she develops worsening pain or increased swelling, to return to the emergency room. 4. DVT prophylaxis. On aspiring bid. 5. Get a repeat TSH in a few weeks with close follow up with her PCP. Greater than 30 minutes discharging and coordinating her care. Copy requested to: Dr. Perry /[id number]/MODL MTDD
--- NOTE | 2018-08-22 14:12 | ASMTLACE ---
BRYCE Length of stay for Answers: 4-6 days current admission Acuity / Level of Answers: Yes Care: Did the patient have an inpatient admission? Comorbidities - select Answers: Chronic pulmonary disease all that apply History of falls Opioid dependence / Chronic pain Other Notes: post-polio syndrome, asthma # of Emergency department Answers: 1-2 visits in the last 6 months Social determinants Answers: History of substance abuse (ETOH, street drugs, prescription drugs, etc.) Score: 21 Date Signed: 08/22/2018 02:11 PM Electronically Signed By:MONICA Baez
--- NOTE | 2018-08-22 14:13 | ASMTCMCOM ---
CM Note CM Note Notes: Pt medically stable for d/c to [facility]. Orders sent in Allscripts. TAWANNA Maurer to call report. Jana with [facility] scheduled wc transport for 1644. Date Signed: 08/22/2018 02:12 PM Electronically Signed By:MONICA Baez
[2018-08-22] MEDS: diphenhydrAMINE 25 MG CAP PO SCH (15:23)
[2018-08-22 15:33] VITALS: BP 120/72
--- NOTE | 2018-08-22 17:18 | POSTANESTH ---
Post Anesthetic Evaluation Cardiovascular Status: Normal, Stable, Similar to Pre-Op Cond Respiratory Status: Normal, Stable, Similar to Pre-op Cond. Level of Consciousness/Mental Status: Mildly Sleepy, Arousable Pain Control: Adequate, Prn Tx Ordered Nausea/Vomiting Control: Adequate, Prn Tx Ordered Complications Possibly Related to Anesthesia: None Noted
--- NOTE | 2018-08-23 12:23 | ASDISCHSUM ---
Discharge Information Plan Status:SNF Medically Cleared to Leave: Discharge Date:08/22/2018 05:04 PM CM D/C Disposition:Assisted Facility ADT D/C Disposition:Assisted Facility Projected Discharge Date:08/22/2018 11:00 AM Transportation at D/C:Wheelchair Van Discharge Delay Reason: Follow-Up Date:08/22/2018 11:00 AM Discharge Slot: Final Diagnosis: Placement Information Referral Type:*Halfway/SNF Referral ID:[id number] Provider Name:[facility] Address 1:[address] Address 2: City:[place] Selection Factors: State:[place] Patient Contact Information Contact Name:PALAKGETACHEW Relationship:Son Address:[address] Work Phone: City:[place] Phone: State/Zip Code:[place] [phone] Email: Financial Information Financial Class:Medicare Primary Plan Desc:MEDICARE INPATIENT Primary Plan Number:[id number] Secondary Plan Desc:[employer] INDEMNITY Secondary Plan Number:[id number] Assessment Information LACE LACE Acuity / Level of Answers: Yes Care: Did the patient have an inpatient admission? Comorbidities - select Answers: Chronic pulmonary disease all that apply History of falls Opioid dependence / Chronic pain Other Notes: post-polio syndrome, asthma # of Emergency department Answers: 1-2 visits in the last 6 months Social determinants Answers: History of substance abuse (ETOH, street drugs, prescription drugs, etc.) Score: 17 Date Signed: 08/19/2018 03:05 PM Electronically Signed By:Alysa Tapia RN [facility] Progress Note CM Note CM Note Notes: Pt presented to the ED via EMS for right hip pain after having a fall at home. Pt states she was washing her dog in the bathtub when she slipped and fell onto her right side. Pt did admit to ETOH use today and has a history of ETOH abuse. Pt admitted for right femoral neck fracture. Ortho consulted, pt to have surgical repair tomorrow morning. Pt lives alone with her dog. Pt's son Zach Mccall and his and child were in the ED earlier but had to leave. This CM went to speak to patient re: plan of care/admission and to complete CAGE but patient is intoxicated, in a lot of pain and was writhing around in bed, screaming. ED RN had warned that pt had been punching out and grabbing at people. Exact DC needs TBD. CM to follow. Date Signed: 08/19/2018 03:48 PM Electronically Signed By:Alysa Tapia RN [facility] CM Progress Note CM Note CM Note Notes: Patient to have R hip ORIF today. Discharge needs TBD. CM to complete CAGE eval post-op. Date Signed: 08/20/2018 12:16 PM Electronically Signed By:Sierra Henson RN [facility] CM Progress Note CM Note CM Note Notes: OT/PT rec SNF, pt amenable. Pt requests referrals to [facility] and [facility], referrals sent in Allscripts. Pt son Zach emailed SNF list. Date Signed: 08/21/2018 03:01 PM Electronically Signed By:MONICA Baez LACE LACE Length of stay for Answers: 4-6 days current admission Acuity / Level of Answers: Yes Care: Did the patient have an inpatient admission? Comorbidities - select Answers: Chronic pulmonary disease all that apply History of falls Opioid dependence / Chronic pain Other Notes: post-polio syndrome, asthma # of Emergency department Answers: 1-2 visits in the last 6 months Social determinants Answers: History of substance abuse (ETOH, street drugs, prescription drugs, etc.) Score: 21 Date Signed: 08/22/2018 02:11 PM Electronically Signed By:MONICA Baez [facility] CM Progress Note CM Note CM Note Notes: Pt medically stable for d/c to [facility]. Orders sent in Allscripts. TAWANNA Maurer to call reportAlfredo [facility] 1645. Date Signed: 08/22/2018 02:12 PM Electronically Signed By:MONICA Baez Intervention Information Intervention Type:*IM-Signed Date of Service:08/22/2018 02:08 PM Patient Type:Inpatient Staff Member:Darleen Morgan Hours: Discipline: Severity: Comment:
== END 2018-08-22 17:04 | DRG 470 ==
LOC: EDUNIT# → F3N 15:19
PROVIDERS: ADMIT Internal Medicine; ATTEND Internal Medicine
PROC: 0SR904Z Replacement of Right Hip Joint with Ceramic on Polyethylene Synthetic Substitute, Open Approach (ICD-10-PCS; principal; 2018-08-20 10:30)
DX: S72.001A Fracture of unspecified part of neck of right femur, initial encounter for closed fracture (principal); Z68.1 Body mass index [BMI] 19.9 or less, adult; M16.11 Unilateral primary osteoarthritis, right hip; W01.0XXA Fall on same level from slipping, tripping and stumbling without subsequent striking against object, initial encounter; Y93.K3 Activity, grooming and shearing an animal; Y92.012 Bathroom of single-family (private) house as the place of occurrence of the external cause; Y90.6 Blood alcohol level of 120-199 mg/100 ml; D64.9 Anemia, unspecified; M25.511 Pain in right shoulder; R41.0 Disorientation, unspecified; G14 Postpolio syndrome; E05.80 Other thyrotoxicosis without thyrotoxic crisis or storm; F10.129 Alcohol abuse with intoxication, unspecified; R63.6 Underweight; J44.9 Chronic obstructive pulmonary disease, unspecified; Z72.0 Tobacco use
CPT/HCPCS: 80307; 84481-90; 96374; 97161-GP; 97166-GO; 97530-GO; 97535-GO; G0480; G8978-GP-CK; G8979-GP-CJ; G8987-GO-CK; G8988-GO-CI; J0171; J0690; J1100; J1170; J1644; J1885; J2001; J2060; J2704; J2795; J3010; J3411; J7613

== ENCOUNTER 2018-11-07 21:33 | Emergency (ER) | payer OTHER ==
--- NOTE | 2018-11-07 21:56 | EDPHY ---
H & P Stated Complaint: muscle cramps in both legs for 2 hours Time Seen by Provider: 11/07/18 21:53 HPI/ROS: HPI CHIEF COMPLAINT: Muscle cramps. HISTORY OF PRESENT ILLNESS: Patient is a 68-year-old female history of anemia, thyroid disease, femur fracture, presents emergency room muscle cramps. She states this started 2 and 0.5 hr ago she was trying to get him bed and developed some discomfort in her legs. States both legs were cramping. She does take a large amount of supplements including potassium, magnesium, multivitamin, calcium. She states to me that she recently increased her calcium over last week. She drinking Gatorade prior to arrival. Patient denies any chest pain or shortness of breath, denies recent illness, denies nausea vomiting or diarrhea, denies fever. Main complaint bilateral lower extremity muscle cramps. Past Medical History: Significant medical history anemia, recent right femoral neck fracture mechanical fall, thyroid disease, alcohol use (none since Aug) Past Surgical History: Right hip surgery. Social History: Smokes marijuana. Denies tobacco use, alcohol use. Last drink was in August. Family History: Noncontributory ROS REVIEW OF SYSTEMS: 10 Systems were reviewed and negative with the exception of the elements mentioned in the history of present illness. Exam Constitutional nontoxic however thin appearing, triage nursing summary reviewed , vital signs reviewed, awake/alert. Vital signs stable Eyes normal conjunctivae and sclera, EOMI, PERRLA. HENT normal inspection, atraumatic, moist mucus membranes, no epistaxis, neck supple/ no meningismus, no raccoon eyes. Respiratory clear to auscultation bilaterally, normal breath sounds, no respiratory distress, no wheezing. Cardiovascular rate normal, regular rhythm, no murmur, no edema, distal pulses normal. Gastrointestinal soft, non-tender, no rebound, no guarding, normal bowel sounds, no distension, no pulsatile mass. Genitourinary no CVA tenderness. Musculoskeletal no midline vertebral tenderness, full range of motion, no calf swelling, no tenderness of extremities, no meningismus, good pulses, neurovascularly intact. Skin pink, warm, & dry, no rash, skin atraumatic. Neurologic awake, alert and oriented x 3, AAOx3, moves all 4 extremities equally, motor intact, sensory intact, CN II-XII intact, normal cerebellar, normal vision, normal speech. Psychiatric normal mood/affect. Heme/Lymph/Immune no lymphadenopathy. Differential Diagnosis: Includes but is not limited to in a particular order dehydration, electrolyte disturbance, calcium abnormality potassium abnormality Medical Decision Making: Plan for this patient IV establishment IV fluid bolus , basic electrolytes, check magnesium, potassium, calcium and re-evaluate. Re-evaluation: Patient left the emergency room against medical advice. She notified nursing staff that she wanted to leave and did not want wait any further. I did not go over her test results with her. I did not get speak with her prior to her leaving the emergency room. Source: Patient - Personal History Current Tetanus/Diphtheria Vaccine: Unsure Current Tetanus Diphtheria and Acellular Pertussis (TDAP): Unsure - Medical/Surgical History Hx Asthma: Yes Hx Chronic Respiratory Disease: No Hx Diabetes: No Hx Cardiac Disease: No Hx Renal Disease: No Hx Cirrhosis: No Hx Alcoholism: No Hx HIV/AIDS: No Hx Splenectomy or Spleen Trauma: No Other PMH: hip replacement, asthma , chronic pain, post polio, skin cancer, anxiety - Social History Smoking Status: Former smoker Constitutional: Initial Vital Signs Temperature (C) 36.9 C 11/07/18 21:34 Heart Rate 93 11/07/18 21:34 Respiratory Rate 16 11/07/18 21:34 Blood Pressure 129/76 H 11/07/18 21:34 O2 Sat (%) 95 11/07/18 21:34 O2 Delivery Mode Room Air Allergies/Adverse Reactions: No Known Allergies Allergy (Verified 11/07/18 21:34) Home Medications: Medication Instructions Recorded diphenhydrAMINE [Benadryl 25 MG 25 mg PO DAILY AT 2PM 04/27/17 (*)] Advair 230/21 Hfa 1 puffs IH BID 08/19/18 Albuterol [Proventil Neb] 3 ml IH BID 08/19/18 Cetirizine [ZyrTEC 10 mg (*)] 10 mg PO DAILY@12 08/19/18 Levothyroxine [Synthroid 50 mcg 50 mcg PO DAILY06 08/19/18 (*)] Fexofenadine HCl [Dilma Allergy] 180 mg PO DAILY 08/20/18 Acetaminophen [Tylenol 325mg (*)] 650 mg PO Q6 PRN tab 08/22/18 Aspirin [Aspirin 81mg (*)] 81 mg PO BID tab.chew 08/22/18 Melatonin [Melatonin 3 MG (*)] 3 mg PO HS tab 08/22/18 Methocarbamol [Robaxin 750 mg (*)] 750 mg PO TID PRN tab 08/22/18 Thiamine HCl [Vitamin B-1] 100 mg PO DAILY tab 08/22/18 Medical Decision Making - Data Points Laboratory Results: Laboratory Results 11/07/18 22:10 11/07/18 22:10 11/07/18 11/07/18 22:10 22:10 WBC 7.51 10^3/uL 10^3/uL (3.80-9.50) RBC 3.96 10^6/uL L 10^6/uL (4.18-5.33) Hgb 12.2 g/dL L g/dL (12.6-16.3) Hct 36.4 % L % (38.0-47.0) MCV 91.9 fL fL (81.5-99.8) MCH 30.8 pg pg (27.9-34.1) MCHC 33.5 g/dL g/dL (32.4-36.7) RDW 14.3 % % (11.5-15.2) Plt Count 275 10^3/uL 10^3/uL (150-400) MPV 9.2 fL fL (8.7-11.7) Neut % (Auto) 44.9 % % (39.3-74.2) Lymph % (Auto) 41.1 % % (15.0-45.0) Tripp % (Auto) 13.6 % H % (4.5-13.0) Eos % (Auto) 0.0 % L % (0.6-7.6) Baso % (Auto) 0.3 % % (0.3-1.7) Nucleat RBC Rel Count 0.0 % % (0.0-0.2) Absolute Neuts (auto) 3.37 10^3/uL 10^3/uL (1.70-6.50) Absolute Lymphs (auto) 3.09 10^3/uL H 10^3/uL (1.00-3.00) Absolute Monos (auto) 1.02 10^3/uL H 10^3/uL (0.30-0.80) Absolute Eos (auto) 0.00 10^3/uL L 10^3/uL (0.03-0.40) Absolute Basos (auto) 0.02 10^3/uL 10^3/uL (0.02-0.10) Absolute Nucleated RBC 0.00 10^3/uL 10^3/uL (0-0.01) Immature Gran % 0.1 % % (0.0-1.1) Immature Gran # 0.01 10^3/uL 10^3/uL (0.00-0.10) Sodium 134 mEq/L L mEq/L (135-145) Potassium 3.4 mEq/L L mEq/L (3.5-5.2) Chloride 106 mEq/L mEq/L (97-110) Carbon Dioxide 23 mEq/l mEq/l (22-31) Anion Gap 5 mEq/L L mEq/L (6-14) BUN 19 mg/dL mg/dL (7-23) Creatinine 0.7 mg/dL mg/dL (0.6-1.0) Estimated GFR > 60 Glucose 148 mg/dL H mg/dL (70-100) Calcium 9.4 mg/dL mg/dL (8.5-10.4) Magnesium 1.6 mg/dL mg/dL (1.6-2.3) Total Bilirubin 0.4 mg/dL mg/dL (0.1-1.4) Conjugated Bilirubin 0.4 mg/dL mg/dL (0.0-0.5) Unconjugated Bilirubin 0.0 mg/dL mg/dL (0.0-1.1) AST 21 IU/L IU/L (14-46) ALT 27 IU/L IU/L (9-52) Alkaline Phosphatase 58 IU/L IU/L (38-126) Total Protein 6.1 g/dL L g/dL (6.3-8.2) Albumin 3.9 g/dL g/dL (3.5-5.0) Medications Given: Discontinued Medications Sodium Chloride (Ns) 1,000 mls @ 0 mls/hr IV EDNOW ONE; Wide Open PRN Reason: Protocol Stop: 11/07/18 22:02 Last Admin: 11/07/18 22:09 Dose: 1,000 mls Departure - Departure Disposition: Against Medical Advice Clinical Impression: Dehydration, Muscle cramps Condition: Good Referrals: Lazarus Barth MD [Primary Care Provider] - As per Instructions
[2018-11-07] MEDS ORDERED: NS 1,000 ML IV ONE (22:01)
[2018-11-07 22:21] LABS: PLATELET COUNT 275 10^3/uL (150-400)
[2018-11-07 23:42] VITALS: BP 126/64
== END 2018-11-08 00:24 | disposition left against medical advice (07) ==
DX: R25.2 Cramp and spasm (principal); E86.0 Dehydration; Z87.891 Personal history of nicotine dependence

== ENCOUNTER → 2019-02-28 | Outpatient (CLI) | payer OTHER | LOC: BMCIMAGING 10:25 | PROVIDERS: ATTEND Family Medicine | DX: M51.36 Other intervertebral disc degeneration, lumbar region (principal); Z96.641 Presence of right artificial hip joint ==